=== PATIENT | male | born 2000 | race Asian ===

== ENCOUNTER 2021-02-15 14:27 | Outpatient (CLI) | payer OTHER ==
[2021-02-16 00:46] LABS: SARS-CoV-2 PCR by NAA Not Detected (NotDetected)
== END 2021-02-15 14:28 | disposition home or self-care (01) ==
LOC: LABBT 14:27
PROVIDERS: ATTEND Specialist
DX: Z01.812 Encounter for preprocedural laboratory examination (principal); J35.01 Chronic tonsillitis; J35.1 Hypertrophy of tonsils; J34.3 Hypertrophy of nasal turbinates; J30.9 Allergic rhinitis, unspecified; R06.5 Mouth breathing; R06.83 Snoring; R53.83 Other fatigue; Z20.822 Contact with and (suspected) exposure to COVID-19
CPT/HCPCS: 87635; U0003; U0005

== ENCOUNTER 2021-02-18 07:36 | Day surgery (SDC) | payer OTHER ==
[2021-02-17 11:53] VITALS: BMI 21.1
[2021-02-18] MEDS ORDERED: AFRIN NASAL MIST 15 ML BOT ONE ×2 (08:01→09:59)
[2021-02-18] MEDS ORDERED: Fentanyl 250 MCG/5 ML VIAL ONE (09:42)
[2021-02-18] MEDS ORDERED: Lidocaine 1% w/Epinephrine 1:100K 20 ML VIAL ONE (09:59)
[2021-02-18] MEDS ORDERED: EPINEPHrine 1 MG/ML AMP ONE (10:02)
[2021-02-18] MEDS ORDERED: Acetaminophen 500 MG TAB ONE (10:03)
[2021-02-18] MEDS ORDERED: Midazolam HCl 2 mg/2 ml Vial ONE (10:03)
[2021-02-18] MEDS ORDERED: Lidocaine 1% PF 5 ML VIAL ONE (10:28)
[2021-02-18] MEDS ORDERED: Glycopyrrolate 0.2 MG/ML 5 ML SYRINGE ONE (10:28)
[2021-02-18] MEDS ORDERED: PROPOFOL 200 MG/20 ML VIAL ONE (10:28)
[2021-02-18] MEDS ORDERED: Rocuronium Bromide 10 MG/ML (10ML VIAL) ONE (10:28)
[2021-02-18] MEDS ORDERED: Dexamethasone 20 MG/5 ML VIAL ONE (10:28)
[2021-02-18] MEDS ORDERED: Ondansetron PF 4 MG/2 ML Vial ONE (10:28)
[2021-02-18] MEDS ORDERED: Fentanyl 100 MCG/2 ML VIAL ONE (11:32)
== END 2021-02-18 12:55 | disposition home or self-care (01) ==
LOC: SDC 07:36
PROVIDERS: ATTEND Specialist
PROC: 0CTPXZZ Resection of Tonsils, External Approach (ICD-10-PCS; principal; 2021-02-18)
PROC: 09TL8ZZ Resection of Nasal Turbinate, Via Natural or Artificial Opening Endoscopic (ICD-10-PCS; principal; 2021-02-18)
DX: J34.3 Hypertrophy of nasal turbinates (principal); J35.01 Chronic tonsillitis; J30.9 Allergic rhinitis, unspecified; Z88.0 Allergy status to penicillin
CPT/HCPCS: 88304; J0171; J1100; J2250; J2405; J2704; J3010